=== PATIENT | female | born 1955 | race Caucasian/White ===

== ENCOUNTER → 2017-03-26 | Outpatient (CLI) | payer OTHER ==
--- NOTE | 2017-03-30 09:02 | MM ---
Reason for exam: screening (asymptomatic). Last mammogram was performed 2 years and 10 months ago. History: Patient is postmenopausal. Benign US biopsy breast VAD RT of the right breast, May 29, 2014. Stereotactic core biopsy, 2002. Benign excisional biopsy of the right breast, 1989. Physical Findings: A clinical breast exam by your physician is recommended on an annual basis and results should be correlated with mammographic findings. MG Screening Mammo w CAD Bilateral CC and MLO view(s) were taken. Prior study comparison: May 24, 2014, bilateral MG diagnostic mammo w CAD [facility]. January 18, 2013, CAD bilateral diagnostic mammogram. There are scattered fibroglandular densities. Previous mammotome biopsy in the right breast. There is chronic nodularity in the right breast. Nodularity in the right upper outer quadrant appears slightly more defined. ASSESSMENT: Incomplete: need additional imaging evaluation, BI-RAD 0 RECOMMENDATION: Special view mammogram and ultrasound of the right breast. [facility] will attempt to contact patient to return for supplemental views and ultrasound.
== END | disposition home or self-care (01) ==
LOC: RADMAMWWP 13:28
PROVIDERS: ATTEND Internal Medicine Critical Care Medicine
DX: Z12.31 Encounter for screening mammogram for malignant neoplasm of breast (principal)

== ENCOUNTER → 2017-04-02 | Outpatient (CLI) | payer OTHER ==
--- NOTE | 2017-04-02 09:22 | MM ---
Reason for exam: additional evaluation requested from abnormal screening. Last mammogram was performed less than 1 month ago. History: Patient is postmenopausal. Benign US biopsy breast VAD RT of the right breast, May 29, 2014. Stereotactic core biopsy, 2002. Benign excisional biopsy of the right breast, 1989. Physical Findings: Nurse Summary: 2cm nodule in the right breast at 5 o'clock (nurse lindy). MG Work Up Mamm w CAD RT Spot compression CC, spot compression MLO, and LM view(s) were taken of the right breast. Prior study comparison: March 26, 2017, bilateral MG screening mammo w CAD. May 24, 2014, bilateral MG diagnostic mammo w CAD [facility]. Previous mammotome biopsy in the right breast. There is chronic nodularity in the right breast, maybe better defined with improved technique. No significant new findings when compared with previous films. These results were verbally communicated with the patient and result sheet given to the patient on 04/02/17. ASSESSMENT: Probably benign, BI-RAD 3 RECOMMENDATION: Follow-up diagnostic mammogram and ultrasound of the right breast in 6 months.
--- NOTE | 2017-04-02 09:26 | USB ---
Reason for exam: additional evaluation requested from abnormal screening. History: Patient is postmenopausal. Benign US biopsy breast VAD RT of the right breast, May 29, 2014. Stereotactic core biopsy, 2002. Benign excisional biopsy of the right breast, 1989. US Breast Workup Limited RT Right breast ultrasound demonstrates two oval, mixed, hypoechoic lesions at 9 o'clock measuring 7 x 3 x 6mm and 7 x 3 x 6mm. These results were verbally communicated with the patient and result sheet given to the patient on 04/02/17. ASSESSMENT: Probably benign, BI-RAD 3 RECOMMENDATION: Follow-up diagnostic mammogram and ultrasound of the right breast in 6 months.
== END ==
LOC: RADMAMWWP 08:10
PROVIDERS: ATTEND Internal Medicine Critical Care Medicine
DX: R92.8 Other abnormal and inconclusive findings on diagnostic imaging of breast (principal)
CPT/HCPCS: 76642; G0206

== ENCOUNTER → 2020-05-18 | Outpatient (CLI) | payer OTHER ==
--- NOTE | 2020-05-18 14:26 | MM ---
Reason for exam: additional evaluation requested from prior study. Last mammogram was performed 3 years and 2 months ago. History: Patient is postmenopausal. Benign US biopsy breast VAD RT of the right breast, May 29, 2014. Stereotactic core biopsy, 2002. Benign excisional biopsy of the right breast, 1989. Physical Findings: Nurse Summary: 2.5cm nodule in the right breast at 4 o'clock (nurse TM). MG Diagnostic Mammo w CAD [facility] Bilateral CC and MLO view(s) were taken. XCCL view(s) were taken of the right breast. Prior study comparison: April 02, 2017, right breast MG work up mamm w CAD RT. March 26, 2017, bilateral MG screening mammo w CAD. The breast tissue is heterogeneously dense. This may lower the sensitivity of mammography. Previous mammotome biopsy in the right breast, large nodule with dystrophic calcifications, corresponds to palpable. There is chronic nodularity in the right breast. Asymmetric breast tissue left axilla, stable. There is no discrete abnormality. These results were verbally communicated with the patient and result sheet given to the patient on 05/18/20. ASSESSMENT: Benign, BI-RAD 2 RECOMMENDATION: Routine screening mammogram of both breasts in 1 year.
== END | disposition home or self-care (01) ==
LOC: RADMAMWWP 13:32
PROVIDERS: ATTEND Internal Medicine Critical Care Medicine
DX: N63.10 Unspecified lump in the right breast, unspecified quadrant (principal); N63.20 Unspecified lump in the left breast, unspecified quadrant
CPT/HCPCS: 77066

== ENCOUNTER → 2022-07-09 | Outpatient (CLI) | payer MEDICARE, OTHER ==
--- NOTE | 2022-07-09 09:07 | BD ---
EXAMINATION TYPE: Axial Bone Density DATE OF EXAM: 07/09/2022 COMPARISON: 01.18.2013 CLINICAL HISTORY: 67 years year old Female. ICD-10 CODE: Z13.820 SCREENING FOR OSTEO Height: 66 Weight: 214 FRAX RISK QUESTIONS: Family History (Parent hip fracture): YES Rheumatoid Arthritis: YES RISK FACTORS HISTORY OF: Family History of Osteoporosis: YES, WITH FX FEMUR Postmenopausal woman: YES, AT 51 YRS OLD Hyperparathyroidism: NO Adrenal Insufficiency: NO MEDICATIONS: Prednisone or other steroids: ON AND OFF FOR RA Additional Medications: METHOTREXATE, REFLUX MEDS, VIT D AND CALCIUM Additional History: RA, REFLUX, EXAM MEASUREMENTS: Bone mineral densitometry was performed using the [employer] System. Bone mineral density as measured about the Lumbar spine is: ----- L1-L4(G/cm2): 1.204 T Score Values are as follows: ----- L1: 0.2 ----- L2: 0.0 ----- L3: -0.2 ----- L4: 0.7 ----- L1-L4: 0.2 Bone mineral density has: Decreased -2.7% SINCE....01.18.2013 Bone mineral density about the R hip (g/cm2): 0.936 Bone mineral density about the L hip (g/cm2): 0.949 T Score values are as follows: -----R Neck: -0.8 -----L Neck: -0.9 -----R Total: -0.6 -----L Total: -0.5 Bone mineral density has: Decreased -5.5% SINCE: 01.18.2013 FRAX%s: The graph provided illustrates a 16.5%nce for a major osteoporotic fx and a 1.8%ance for the hips probability for fx in 10 years time. IMPRESSION: Normal (Values between +1 and -1 indicate normal bone mass). Consider repeating this study in 5 year s or sooner if there is some new clinical indication. NOTE: T-SCORE=SD OF THE YOUNG ADULT MEAN.
== END | disposition home or self-care (01) ==
LOC: RADBDWWP 07:53
PROVIDERS: ATTEND Internal Medicine Rheumatology
DX: Z13.820 Encounter for screening for osteoporosis (principal); K21.9 Gastro-esophageal reflux disease without esophagitis; M06.9 Rheumatoid arthritis, unspecified
CPT/HCPCS: 77080

== ENCOUNTER 2022-10-01 17:07 | Emergency (ER) | payer MEDICARE, OTHER ==
[2022-10-01 17:31] VITALS: TEMP 98.1
--- NOTE | 2022-10-01 18:28 | ED ---
General Adult HPI - General Source: patient Mode of arrival: ambulatory Limitations: no limitations <Elena Gonzalez - Last Filed: 10/01/22 18:26> <Santos Holden - Last Filed: 10/01/22 20:01> - General Source: patient, family, RN notes reviewed Mode of arrival: ambulatory Limitations: no limitations <Delia Benito - Last Filed: 10/01/22 21:20> - General Chief complaint: Recheck/Abnormal Lab/Rx Stated complaint: elba blood pressure Time Seen by Provider: 10/01/22 18:26 - History of Present Illness Initial comments: Patient is a 67-year-old female presents to the emergency department for high bl ood pressure. Patient states she has history she does not take any medication for it. She reports a mild headache otherwise feels well. No chest pain or shortness of breath. No lightheadedness, dizziness, blurry vision. (Elena Gonzalez) This is a 67-year-old female who presents to the emergency department for concerns of elevated blood pressure. She is not currently being treated for hypertension. States that over the last week she has been checking her blood pressure at home, and she has noticed that her blood pressure has been elevated. She has measured it in the 150s to 160s systolically and when she was at the dentist earlier this week it was 105 diastolically, however she cannot recall the systolic number at that time. She has started to notice some headaches over the last couple of days. Denies any spots in her vision or visual changes. She also denies any chest pain or shortness of breath. She does report that she eats more salt than she should. Denies any fevers, chills, sore throat, cough, dyspnea, chest pain, palpitations, abdominal pain, nausea, vomiting, diarrhea, or back pain. (Delia Benito) - Related Data Home Medications Medication Instructions Recorded Confirmed Adalimumab [Humira Pen] 40 mg SQ [id number] 04/12/14 04/12/14 Antiarthritic Combination No.2 1 tab PO DAILY 04/12/14 04/12/14 [Glucosamine-Chondroitin] Calcium Carbonate/Vitamin D3 1 tab PO DAILY 04/12/14 04/12/14 [Calcium 600-Vit D3 400 Tablet] Cetirizine HCl [Zyrtec] 10 mg PO DAILY 04/12/14 04/12/14 Doterra Vitamin Pack 1 applic PO DAILY 04/12/14 04/12/14 Folic Acid 0.8 mg PO DAILY 04/12/14 04/12/14 Multivitamins, Thera [Multivitamin 1 tab PO DAILY 04/12/14 04/12/14 (formulary)] metHOTREXate sodium [Methotrexate] 12.5 mg PO WE 04/12/14 04/12/14 Previous Rx's Medication Instructions Recorded Levofloxacin 750Mg-D5w Pmx 750 mg IVPB Q24H #7 bag 04/15/14 [Levaquin 750Mg-D5w Pmx] metroNIDAZOLE [Flagyl] 500 mg PO TID #30 tab 04/15/14 amLODIPine [Norvasc] 5 mg PO DAILY #15 tab 10/01/22 Allergies Allergy/AdvReac Type Severity Reaction Status Date / Time clindamycin Allergy Rash/Hives Verified 10/01/22 17:31 Review of Systems ROS Other: All systems not noted in ROS Statement are negative. <Elena Gonzalez - Last Filed: 10/01/22 18:26> ROS Other: All systems not noted in ROS Statement are negative. <Santos Holden - Last Filed: 10/01/22 20:01> ROS Other: All systems not noted in ROS Statement are negative. <Delia Benito - Last Filed: 10/01/22 21:20> ROS Statement: Those systems with pertinent positive or pertinent negative responses have been documented in the HPI. Past Medical History Past Medical History: Hypertension, Rheumatoid Arthritis (RA) Additional Past Medical History / Comment(s): UTI, DIVERTICULITIS History of Any Multi-Drug Resistant Organisms: None Reported Past Surgical History: Adenoidectomy, Orthopedic Surgery, Tonsillectomy Additional Past Surgical History / Comment(s): right rotator cuff repair Past Anesthesia/Blood Transfusion Reactions: Motion Sickness Past Psychological History: No Psychological Hx Reported Smoking Status: Never smoker Past Alcohol Use History: Occasional Past Drug Use History: None Reported - Past Family History Father Family Medical History: GERD/Reflux, Prostate Disorder Additional Family Medical History / Comment(s): DAD IS 85, VERTIGO, ULCERS Mother Family Medical History: Eye Disorder, Hypertension, Renal Disease Additional Family Medical History / Comment(s): MOM IS 85 IN W/C AFTER BACK SX <Elena Gonzalez - Last Filed: 10/01/22 18:26> General Exam Limitations: no limitations <Elena Gonzalez - Last Filed: 10/01/22 18:26> Limitations: no limitations General appearance: alert, in no apparent distress Head exam: Present: atraumatic, normocephalic, normal inspection Eye exam: Present: normal appearance, PERRL, EOMI. Absent: scleral icterus, conjunctival injection, periorbital swelling Respiratory exam: Present: normal lung sounds bilaterally. Absent: respiratory distress, wheezes, rales, rhonchi, stridor Cardiovascular Exam: Present: regular rate, normal rhythm, normal heart sounds. Absent: systolic murmur, diastolic murmur, rubs, gallop, clicks Neurological exam: Present: alert, oriented X3, CN II-XII intact Psychiatric exam: Present: normal affect, normal mood Skin exam: Present: warm, dry, intact, normal color. Absent: rash <Delia Benito - Last Filed: 10/01/22 21:20> - General Exam Comments Initial Comments: Visual Physical Exam Vital signs reviewed General: Well-appearing, nontoxic, no acute distress. Head: Normocephalic, atraumatic Eyes: PERRLA, EOMI ENT: Airway patent Chest: Nonlabored breathing Skin: No visual rash, normal skin tone Neuro: Alert and oriented 3 Musculoskeletal: No gross abnormalities (Elena Gonzalez) Course Vital Signs 10/01/22 10/01/22 17:29 21:16 Temperature 98.1 F Pulse Rate 79 72 Respiratory 20 14 Rate Blood Pressure 144/92 161/97 O2 Sat by Pulse 97 98 Oximetry EKG Findings - EKG Results: EKG: interpreted by ERMD (EKG interpreted by me normal sinus rhythm a 71. Interval 146 QRS duration 106 QT since QTC 383/[address]-T wave changes) <Santos Holden - Last Filed: 10/01/22 20:01> Medical Decision Making - Lab Data Result diagrams: 10/01/22 20:15 10/01/22 20:15 - Radiology Data Radiology results: report reviewed, image reviewed <Delia Benito - Last Filed: 10/01/22 21:20> - Medical Decision Making Is a 67-year-old female who presents emergency department for concerns of elevated blood pressure. Was pt. sent in by a medical professional or institution? @ -No Did you speak to anyone other than the patient for history? @ -No Did you review nursing and triage notes? @ -Yes, and I agree, it is accurate with regards to the patient's symptoms. Were old charts reviewed? @ -No Differential Diagnosis? @ -Differential elevated BP: EKG interpreted by me (3pts min.)? @ -[none] X-rays interpreted by me (1pt min.)? @ -[none] CT interpreted by me (1pt min.)? @ -[none] U/S interpreted by me (1pt. min.)? @ -[none] What testing was considered but not performed? (CT, X-rays, U/S, labs)? Why? @ [CT, X-rays, U/S, labs? Why?] What meds were considered but not given? Why? @ -[none] Did you discuss the management of the patient with other professionals? @ -No Did you reconcile home meds? @ -No Was smoking cessation discussed for >3mins.? @ -No Was critical care preformed (if so, how long)? @ -No Were there social determinants of health that impacted care today? How? ( Homelessness, low income, unemployed, alcoholism, drug addiction, transportation, low edu. Level, literacy, decrease access to med. care, snf, rehab)? @ -No Was there de-escalation of care discussed even if they declined? (Discuss DNR or withdrawal of care, Hospice)? @ -No What co-morbidities impacted this encounter? (DM, HTN, Smoking, COPD, CAD, Cancer, CVA, Hep., AIDS, mental health diagnosis, sleep apnea, morbid obesity)? @ -[DM, HTN, Smoking, COPD, CAD, Cancer, CVA, Hep., AIDS, mental health di agnosis, sleep apnea, morbid obesity?] Was patient admitted / discharged? @ -[hospital course] Undiagnosed new problem with uncertain prognosis? @ -None Drug Therapy requiring intensive monitoring for toxicity (Heparin, Nitro, Insulin, Cardizem)? @ -None Were any procedures done? @ -None Diagnosis/symptom? @ -[default] Acute, or Chronic, or Acute on Chronic? @ -[default] Uncomplicated (without systemic symptoms) or Complicated (systemic symptoms)? @ -[default] Side effects of treatment? @ -[none] Exacerbation, Progression, or Severe Exacerbation] @ -Not applicable Poses a threat to life or bodily function? @ -[no] (Delia Benito) - Lab Data Lab Results 10/01/22 10/01/22 Range/Units 20:15 20:15 WBC 4.1 (3.8-10.6) k/uL RBC 4.21 (3.80-5.40) m/uL Hgb 13.2 (11.4-16.0) gm/dL Hct 38.9 (34.0-46.0) % MCV 92.5 (80.0-100.0) fL MCH 31.5 (25.0-35.0) pg MCHC 34.0 (31.0-37.0) g/dL RDW 14.1 (11.5-15.5) % Plt Count 221 (150-450) k/uL MPV 7.1 Neutrophils % 59 % Lymphocytes % 28 % Monocytes % 8 % Eosinophils % 2 % Basophils % 1 % Neutrophils # 2.4 (1.3-7.7) k/uL Lymphocytes # 1.1 (1.0-4.8) k/uL Monocytes # 0.3 (0-1.0) k/uL Eosinophils # 0.1 (0-0.7) k/uL Basophils # 0.0 (0-0.2) k/uL Sodium 139 (137-145) mmol/L Potassium 4.6 (3.5-5.1) mmol/L Chloride 106 (98-107) mmol/L Carbon Dioxide 28 (22-30) mmol/L Anion Gap 5 mmol/L BUN 29 H (7-17) mg/dL Creatinine 1.02 (0.52-1.04) mg/dL Est GFR (CKD-EPI)AfAm 65 (>60 ml/min/1.73 sqM) Est GFR (CKD-EPI)NonAf 57 (>60 ml/min/1.73 sqM) Glucose 87 (74-99) mg/dL Calcium 9.5 (8.4-10.2) mg/dL Total Bilirubin 0.3 (0.2-1.3) mg/dL AST 27 (14-36) U/L ALT 18 (4-34) U/L Alkaline Phosphatase 73 (38-126) U/L Total Protein 7.4 (6.3-8.2) g/dL Albumin 4.4 (3.5-5.0) g/dL Disposition <Elena Gonzalez - Last Filed: 10/01/22 18:26> <Santos Holden - Last Filed: 10/01/22 20:01> Is patient prescribed a controlled substance at d/c from ED?: No <Delia Benito - Last Filed: 10/01/22 21:20> Clinical Impression: Hypertension Disposition: HOME SELF-CARE Instructions (If sedation given, give patient instructions): Hypertension (ED) Additional Instructions: Return to the emergency department with any new, worsening, or concerning symptoms. Take the amlodipine daily. Check your blood pressure several times each day and keep a log of the blood pressure. Follow up with your primary care provider as scheduled on Thursday and make sure you bring the log of your blood pressures with you. Prescriptions: amLODIPine [Norvasc] 5 mg PO DAILY #15 tab Referrals: Santos Pacheco DO [Primary Care Provider] - 1-2 days
--- NOTE | 2022-10-01 19:38 | XR ---
EXAMINATION TYPE: XR chest 2V DATE OF EXAM: 10/01/2022 7:20 PM COMPARISON: None TECHNIQUE: XR chest 2V Frontal and lateral views of the chest. CLINICAL INDICATION:Female, 67 years old with history of elevated BP; FINDINGS: Lungs/Pleura: There is flattening of the diaphragm with increased lucency of the lungs. No evidence o f pneumothorax, pleural effusion or focal consolidation. Pulmonary vascularity: Unremarkable. Heart/mediastinum: Cardiomediastinal silhouette is unremarkable. Musculoskeletal: No acute osseous pathology. IMPRESSION: 1. No acute cardiopulmonary disease process. 2. COPD changes.
[2022-10-01] MEDS ORDERED: amLODIPine 5 MG TAB PO STA (20:00)
[2022-10-01 20:25] LABS: Basophils % (A) 1 %; Eosinophils # (A) 0.1 k/uL (0-0.7); Eosinophils % (A) 2 %; HCT 38.9 % (34.0-46.0); HGB 13.2 gm/dL (11.4-16.0); Lymphocytes # (A) 1.1 k/uL (1.0-4.8); Lymphocytes % (A) 28 %; MCH 31.5 pg (25.0-35.0); MCV 92.5 fL (80.0-100.0); Mean Platelet Volume 7.1; Monocytes # (A) 0.3 k/uL (0-1.0); Monocytes % (A) 8 %; Neutrophils # (A) 2.4 k/uL (1.3-7.7); Neutrophils % (A) 59 %; Platelet Count 221 k/uL (150-450); RBC 4.21 m/uL (3.80-5.40); RDW 14.1 % (11.5-15.5); WBC 4.1 k/uL (3.8-10.6)
[2022-10-01 20:55] LABS: Albumin 4.4 g/dL (3.5-5.0); Calcium 9.5 mg/dL (8.4-10.2); Potassium 4.6 mmol/L (3.5-5.1); Total Bilirubin 0.3 mg/dL (0.2-1.3); Total Protein 7.4 g/dL (6.3-8.2)
[2022-10-01 21:17] VITALS: RESP 14
[2022-10-01 21:37] VITALS: BP 144/85; PULSE 74
== END 2022-10-01 21:37 | disposition home or self-care (01) ==
LOC: EC 17:07
DX: I10 Essential (primary) hypertension (principal); M06.9 Rheumatoid arthritis, unspecified; Z88.1 Allergy status to other antibiotic agents; Z79.899 Other long term (current) drug therapy
CPT/HCPCS: 36415; 71046; 80053; 85025; 93005; 99284